=== PATIENT | female | born 1980 | race Caucasian/White ===

== ENCOUNTER 2022-10-30 09:02 | Outpatient (OUT) | payer BC, SELFPAY ==
--- NOTE | 2022-10-30 09:13 | MM_ITS ---
Patient: RAIZA RUBIN Exam Date: 10/30/2022 : 1980 Gender:F Ordering : DR MILDRED PRICE Admission #: [id number] Family : Order #: [id number] CLICK HERE TO VIEW EXAM RADIOLOGY REPORT PROCEDURE: MM TOMOSYNTHESIS SCREENING BI COMPARISON: None. INDICATIONS: Screening Calculator Name NCI Breast Cancer Risk Assessment Tool 5 Year Breast Cancer Risk 0.80% Lifetime Breast Cancer Risk 9.50% Personal Breast Cancer No Personal Ovarian Cancer No Treatments None Family Cancers None LOCATION: [facility] BREAST COMPOSITION: Heterogeneously dense,which may obscure small masses. FINDINGS: DIAGNOSTIC CATEGORY 0--INCOMPLETE: NEED ADDITIONAL IMAGING EVALUATION. RIGHT BREAST: No significant suspicious finding. LEFT BREAST: 9 mm partially circumscribed nodule within the anterior lower-inner quadrant. Spot magnification views and ultrasound evaluation recommended. RECOMMENDATIONS: ADDITIONAL MAMMOGRAPHIC VIEWS REQUIRED: LEFT BREAST - LEFT CRANIOCAUDAL SPOT MAGNIFICATION VIEW - LEFT OBLIQUE SPOT MAGNIFICATION VIEW - ULTRASOUND: LEFT BREAST PLEASE NOTE: A NORMAL MAMMOGRAM DOES NOT EXCLUDE THE POSSIBILITY OF BREAST CANCER. A CLINICALLY SUSPICIOUS PALPABLE LUMP SHOULD BE BIOPSIED. Dictated by: Reymundo Whelan M.D. on 11/12/2022 at 10:18 Approved by: Reymundo Whelan M.D. on 11/12/2022 at 10:21
--- NOTE | 2022-10-30 09:16 | US_ITS ---
The [address] [address] Patient Name: RAIZA RUBIN MRN: [id number] date: 1980 Sex: F Assigned Patient Location: [facility] Current Patient Location: [facility] Accession/Order Number: [id number] Exam Date: 10/30/2022 09:25 Report Date: 10/30/2022 10:26 At the request of: MILDRED PRICE Procedure: US thyroid EXAMINATION: US thyroid HISTORY: Multiple Thyroid Nodules E04.2 COMPARISON: 02/06/2021 TECHNIQUE: Sonographic images of the thyroid gland were obtained. FINDINGS: The right thyroid lobe is normal in size, contour and echotexture measuring 5.1 x 1.5 x 1.7 cm 2 focal nodules measuring 3 and 6 mm in size The thyroid isthmus measures 2.9 mm. No focal nodule The left thyroid lobe is normal in size, contour and echotexture measuring 5.7 x 1.4 x 1.7 cm. 3. Subcentimeter nodules the largest measures 0.9 x 0.8 x 0.5 cm. Solid, isoechoic, wide, ill-defined margins, no calcifications. TR 3 US/US thyroid IMPRESSION: Subcentimeter bilateral thyroid nodules the largest a TR 3 nodule measuring 0.9 cm on the left. No follow-up is required TI-RADS: The [employer] TI-RADS committee's white paper recommendations for thyroid lesions classified as TR3 (mildly suspicious) are listed below: > 1.5 cm. Follow-up ultrasound in 1, 3, and 5 years. > 2.5 cm. FNA. J. Am Juan Luis Radiol 2017;14:[id number]. Electronically authenticated by: NAZANIN WEAVER Date: 10/30/2022 10:26
--- NOTE | 2022-10-30 09:16 | XR_ITS ---
[address] [address] Patient Name: RAIZA RUBIN MRN: [id number] date: 1980 Sex: F Assigned Patient Location: [facility] Current Patient Location: [facility] Accession/Order Number: [id number] Exam Date: 10/30/2022 10:00 Report Date: 10/30/2022 10:51 At the request of: MILDRED PRICE Procedure: XR DEXA axial skeleton EXAMINATION: XR DEXA axial skeleton HISTORY: Osteopenia COMPARISON: No relevant comparison available. TECHNIQUE: Dual-energy X-ray absorptiometry (DXA) was performed. FINDINGS: SPINE ANALYSIS: Average bone mineral density is 1.077 g/cm2. T-score (standard deviation relative to young adult mean): -0.9 . HIP ANALYSIS: Lowest bone mineral density is within the right femoral neck, 0.735 g/cm2. T-score (standard deviation relative to young adult mean): -2.2 . XR/XR DEXA axial skeleton IMPRESSION: [employer] Organization Classification: Osteopenia - Moderate Fracture Risk Electronically authenticated by: ELIANA DOLAN Date: 10/30/2022 10:51
== END 2022-10-30 09:03 | disposition home or self-care (01) ==
LOC: MAMMO 09:08
PROVIDERS: PCP Internal Medicine; Visit Provider Internal Medicine
DX: E04.2 Nontoxic multinodular goiter (principal); Z12.31 Encounter for screening mammogram for malignant neoplasm of breast; M85.89 Other specified disorders of bone density and structure, multiple sites; N63.24 Unspecified lump in the left breast, lower inner quadrant
CPT/HCPCS: 76536; 77063; 77067; 77080